=== PATIENT | male | born 1960 | race Caucasian/White ===

== ENCOUNTER 2017-10-26 18:20 | Emergency (ER) | payer BC ==
[~2017-10-26] VITALS: Ht 170.2 cm; Wt 68.0 kg
[2017-10-26 18:25] VITALS: BP 91/59
[2017-10-26 19:21] VITALS: BP 91/59
[2017-10-26 19:22] LABS: ANION GAP 13 mmol/L (5-15); BLOOD UREA NITROGEN 15 mg/dL (7-18); CALCIUM 9.1 MG/DL (8.5-10.1); CARBON DIOXIDE 24 MMOL/L (21-32); CHLORIDE 105 MMOL/L (98-107); CREATININE 0.9 MG/DL (0.55-1.30); POTASSIUM 3.7 MMOL/L (3.5-5.1); SODIUM 142 MMOL/L (136-145)
[2017-10-26 19:25] LABS: BASOPHILS % (AUTO) 1.3 % (0.0-2.0); EOSINOPHILS % (AUTO) 0.7 % (0.0-3.0); HEMOGLOBIN 15.5 G/DL (14.2-18.0); LYMPHOCYTES % (AUTO) 30.7 % (20.0-45.0); MEAN CORPUSCULAR VOLUME 96 FL (80-99); MONOCYTES % (AUTO) 7.6 % (1.0-10.0); NEUTROPHILS % (AUTO) 59.8 % (45.0-75.0); PLATELET COUNT 292 K/UL (150-450); RED CELL DISTRIBUTION WIDTH 12.1 % (11.6-14.8); WHITE BLOOD COUNT 9.6 K/UL (4.8-10.8)
[2017-10-26 19:27] LABS: ALANINE AMINOTRANSFERASE 34 U/L (12-78); ALBUMIN 4.1 G/DL (3.4-5.0); ALBUMIN/GLOBULIN RATIO 1.4 (1.0-2.7); ALKALINE PHOSPHATASE 56 U/L (46-116); ASPARTATE AMINO TRANSFERASE 19 U/L (15-37); BILIRUBIN,TOTAL 0.4 MG/DL (0.2-1.0); CREATINE KINASE 61 U/L (26-308)
[2017-10-26] MEDS ORDERED: ZANTAC150 MG ORAL (20:38)
[2017-10-26] MEDS ORDERED: ZOFRAN ODT4 MG ORAL (20:38)
--- NOTE | 2017-10-26 20:38 | Emergency Room Report ---
History of Present Illness General Chief Complaint: Syncope Source: EMS Present Illness HPI 57 YO Male Pt. presents to the ED Complaining of rapid onset syncopal episode. Patient reports transient loss of consciousness. He states he became very out of it". Patient states that he has been out in the sun all day he had one glass of red wine and he began to feel hot, sweaty and dizzy. At this point he began to squat down near the ground because he felt near syncopal and that is when his friend stated that he lost consciousness for less than several seconds. EMS states that initially patient was somewhat confused. Pt. reports nausea. Denies vomiting. denies neck or back pain. Denies taking blood thinning medications. Patient has history of hyperlipidemia. He denies chest pain, palpitations, recent drug use. Patient states he did not hit his head, as he was able to get down to the ground quickly. Denies unilateral weakness, Changes in Vision, Sensation, paresthesias, or a sudden severe headache. denies hx of seizures. Allergies: Coded Allergies: BUPROPION (Unverified Allergy, Unknown, 10/26/17) OPIOIDS - MORPHINE ANALOGUES (Unverified Allergy, Unknown, 10/26/17) Patient History Past Medical History: see triage record Past Surgical History: none Pertinent Family History: none Social History: Reports: alcohol use - glass or two of wine daily. Reviewed Nursing Documentation: PMH: Agreed; PSxH: Agreed Nursing Documentation-PMH Past Medical History Deferred: Pt Cognitively Impaired Past Medical History: No History, Except For Review of Systems All Other Systems: negative except mentioned in HPI Physical Exam Vital Signs Date Time Temp Pulse Resp B/P (MAP) Pulse Ox O2 Delivery O2 Flow Rate FiO2 10/26/17 18:14 97.8 70 20 100/62 99 Room Air 97.9 Sp02 EP Interpretation: reviewed, normal General Appearance: no apparent distress, alert, GCS 15, non-toxic, mild distress Head: normocephalic, other - superficial abrasion to the lower lip, not bleeding less than 0.2cm. and slight bruising noted to the left side of the nasal bridge where his glasses rest. , no TTP. Eyes: bilateral eye normal inspection, bilateral eye PERRL, bilateral eye EOMI ENT: hearing grossly normal, normal voice Neck: full range of motion Respiratory: chest non-tender, lungs clear, normal breath sounds, speaking full sentences Cardiovascular #1: regular rate, rhythm, no edema, normal capillary refill Gastrointestinal: normal bowel sounds, non tender, soft Rectal: deferred Genitourinary: normal inspection Musculoskeletal: back normal, gait/station normal, normal range of motion, non- tender Neurologic: alert, oriented x3, responsive, motor strength/tone normal, sensory intact, normal gait, speech normal, grossly normal Psychiatric: judgement/insight normal Skin: normal color, no rash, warm/dry, well hydrated, other - Pt. shirt was damp, his skin no longer is, possible previous diaphoresis. superficial abrasion to the lower lip, and bruise noted to the nasal bridge on the left side where pt.'s glasses rest on. Medical Decision Making PA Attestation Dr. Reed is my supervising Physician whom patient management has been discussed with. Diagnostic Impression: Primary Impression: Syncope Qualified Codes: T67.1XXA - Heat syncope, initial encounter ER Course 57 YO Male Pt. presents to the ED Complaining of rapid onset syncopal episode. Patient reports transient loss of consciousness. He states he became very out of it". Patient states that he has been out in the sun all day he had one glass of red wine and he began to feel hot, sweaty and dizzy. At this point he began to squat down near the ground because he felt near syncopal and that is when his friend stated that he lost consciousness for less than several seconds. EMS states that initially patient was somewhat confused. Pt. reports nausea. Denies vomiting. denies neck or back pain. Denies taking blood thinning medications. Patient has history of hyperlipidemia. He denies chest pain, palpitations, recent drug use. Patient states he did not hit his head, as he was able to get down to the ground quickly. Denies unilateral weakness, Changes in Vision, Sensation, paresthesias, or a sudden severe headache. denies hx of seizures. Ddx considered but are not limited to dysrhythmia, methamphetamine, hypoglycemia , hypovolemia, , intracranial process, vasovagal. Vital signs: are WNL, pt. is afebrile H&PE are most consistent with syncopal episode ORDERS: -Accu Check: -12-lead EK NSR -CBC, CMP: unremarkable Glucose: 129 -Total CK: WNL -UDS & UA : unavailable, Pt. not able to give urine. ED INTERVENTIONS: -1000 mL normal saline bolus IV x 2 - Zofran 4mg IV - Pepcid PO d/w pt. results of his labs. pt. states he feels much better. pt. ambulatory and A & O x 3 . Pt. requests to go home , he states he needs a cab called. DISCHARGE: At this time pt. is stable for d/c to home. Will provide printed patient care instructions, and any necessary prescriptions. Care plan and follow up instructions have been discussed with the patient prior to discharge. Labs Test 10/26/17 18:40 White Blood Count 9.6 K/UL (4.8-10.8) Red Blood Count 4.80 M/UL (4.70-6.10) Hemoglobin 15.5 G/DL (14.2-18.0) Hematocrit 46.0 % (42.0-52.0) Mean Corpuscular Volume 96 FL (80-99) Mean Corpuscular Hemoglobin 32.2 PG (27.0-31.0) Mean Corpuscular Hemoglobin Concent 33.7 G/DL (32.0-36.0) Red Cell Distribution Width 12.1 % (11.6-14.8) Platelet Count 292 K/UL (150-450) Mean Platelet Volume 6.7 FL (6.5-10.1) Neutrophils (%) (Auto) 59.8 % (45.0-75.0) Lymphocytes (%) (Auto) 30.7 % (20.0-45.0) Monocytes (%) (Auto) 7.6 % (1.0-10.0) Eosinophils (%) (Auto) 0.7 % (0.0-3.0) Basophils (%) (Auto) 1.3 % (0.0-2.0) Sodium Level 142 MMOL/L (136-145) Potassium Level 3.7 MMOL/L (3.5-5.1) Chloride Level 105 MMOL/L (98-107) Carbon Dioxide Level 24 MMOL/L (21-32) Anion Gap 13 mmol/L (5-15) Blood Urea Nitrogen 15 mg/dL (7-18) Creatinine 0.9 MG/DL (0.55-1.30) Estimat Glomerular Filtration Rate > 60 mL/min (>60) Glucose Level 129 MG/DL (74-106) Calcium Level 9.1 MG/DL (8.5-10.1) Total Bilirubin 0.4 MG/DL (0.2-1.0) Aspartate Amino Transf (AST/SGOT) 19 U/L (15-37) Alanine Aminotransferase (ALT/SGPT) 34 U/L (12-78) Alkaline Phosphatase 56 U/L (46-116) Total Creatine Kinase 61 U/L (26-308) Troponin I 0.000 ng/mL (0.000-0.056) Total Protein 7.1 G/DL (6.4-8.2) Albumin 4.1 G/DL (3.4-5.0) Globulin 3.0 g/dL Albumin/Globulin Ratio 1.4 (1.0-2.7) Serum Alcohol 29 mg/dL EKG Diagnostic Results EP Interpretation: Dr. Reed Rate: normal - 64 BPM Rhythm: NSR ST Segments: no acute changes ASA given to the pt in ED: No PA Scribe Text This Interpretation was scribed by HAKAN Seay. Last Vital Signs Date Time Temp Pulse Resp B/P (MAP) Pulse Ox O2 Delivery O2 Flow Rate FiO2 10/26/17 19:21 97.9 68 20 91/59 99 Room Air 97.9 Status: improved Disposition: HOME, SELF-CARE Condition: Stable Scripts Ondansetron Odt* (ZOFRAN ODT*) 4 Mg Tab.rapdis 4 MG ORAL Q6H PRN for Nausea & Vomiting, #10 TAB Prov: Katrina Seay P.A. 10/26/17 Ranitidine Hcl* (ZANTAC*) 150 Mg Tablet 150 MG ORAL TWICE A DAY for 14 Days, #28 TAB Prov: Katrina Seay P.A. 10/26/17 Referrals: NON PHYSICIAN (PCP) Patient Instructions: Syncope Additional Instructions: Take medications as directed. Follow up with a Primary Care Provider in 3-5 days, even if your symptoms have resolved. --Please review list of primary care clinics, if you do not already have a primary care provider Return sooner to ED if new symptoms occur, or current symptoms become worse. Do not drink alcohol until cleared by your PCP. - Please note that this Emergency Department Report was dictated using [employer]ISET[employer]balancing machine set up worker technology software, occasionally this can lead to erroneous entry secondary to interpretation by the dictation equipment. Katrina Seay Oct 26, 2017 20:38
[2017-10-26 21:08] VITALS: BP 101/64
[2017-10-26 21:13] VITALS: BP 124/76
--- NOTE | 2017-10-27 16:24 | Cardiology Report ---
APPROVED REPORT EKG Measurement Heart [id number] Normal sinus rhythm Normal ECG
== END 2017-10-26 21:04 | disposition home or self-care (01) ==
LOC: EDBD 18:20 → EMR 19:23
DX: R55 Syncope and collapse (principal); S00.511A Abrasion of lip, initial encounter; S00.33XA Contusion of nose, initial encounter; W19.XXXA Unspecified fall, initial encounter; Y92.9 Unspecified place or not applicable; Z88.5 Allergy status to narcotic agent
CPT/HCPCS: 36415; 80053; 82550; 82962; 84484; 85025; 93005; 96361; 96374; 99284; G0480; J2405; 80329